=== PATIENT | male | born 1940 | race Caucasian/White ===

== ENCOUNTER 2021-04-27 08:39 | Inpatient (IN) | payer MEDICARE ==
[~2021-04-27] VITALS: Ht 172.7 cm; Wt 72.6 kg
[2021-04-27 09:30] LABS: Calcium, Ionized (POC) 1.14 mmol/L (1.10-1.46); Chloride (POC) 110 mmol/L (98-108); Creatinine (POC) 0.8 mg/dL (0.8-1.3); Glucose (ISTAT POC) 114 mg/dL (70-99); Hemoglobin (POC) 15.6 g/dL (13.5-17.5); Potassium (POC) 4.2 mmol/L (3.5-5.5); Sodium (POC) 142 mmol/L (135-148); Total CO2 (POC) 18 mmol/L (21-32)
[2021-04-27 09:31] LABS: BASOPHILS ABSOLUTE AUTO 0.05 K/mm3 (0.00-0.23); BASOPHILS PERCENT AUTO 1 % (0-2); EOSINOPHILS ABSOLUTE AUTO 0.13 K/mm3 (0.00-0.68); EOSINOPHILS PERCENT AUTO 2 % (0-6); Hematocrit 45.5 % (37.0-53.0); Hemoglobin 15.4 g/dL (13.5-17.5); IMMATURE GRAN ABSOLUTE AUTO 0.01 K/mm3 (0.00-0.10); IMMATURE GRAN PERCENT AUTO 0 % (0-1); LYMPHOCYTES ABSOLUTE AUTO 1.62 K/mm3 (0.84-5.20); LYMPHOCYTES PERCENT AUTO 25 % (21-46); MONOCYTES PERCENT AUTO 11 % (4-13); Mean Corpuscular HGB 31.9 pg (26.0-34.0); Mean Corpuscular HGB Conc 33.8 g/dL (31.5-36.5); Mean Corpuscular Volume 94 fL (80-100); Mean Platelet Volume 10.1 fL (9.1-12.4); NEUTROPHILS ABSOLUTE AUTO 3.98 K/mm3 (1.96-9.15); NEUTROPHILS PERCENT AUTO 61 % (41-73); Platelet Count 158 K/mm3 (150-400); RDW Standard Deviation 44.7 fL (35.1-46.3); Red Blood Cell Count 4.83 M/mm3 (4.30-5.90); White Blood Cell Count 6.49 K/mm3 (4.00-11.30)
[2021-04-27 10:13] LABS: Influenza A, PCR NEGATIVE (NEGATIVE); Influenza B, PCR NEGATIVE (NEGATIVE); Resp Syncytial Virus, PCR NEGATIVE (NEGATIVE); SARS-Cov-2 (COVID-19) PCR, MMC NEGATIVE (NEGATIVE)
[2021-04-27 10:22] LABS: Alanine Aminotransfer (ALT/SGP 65 U/L (12-78); Albumin, Blood 3.9 g/dL (3.4-5.0); Albumin/Globulin Ratio 1.2 (0.8-1.8); Alk Phos 61 U/L (50-136); Anion Gap 9 mmol/L (6-16); Aspartate Aminotrans (AST/SGOT 37 U/L (12-37); Bilirubin, Total 0.8 mg/dL (0.1-1.0); Blood Urea Nitrogen 12 mg/dL (8-24); Bun/Creatinine Ratio 13.5 (12.0-20.0); CO2, Blood 21 mmol/L (21-32); Calcium, Blood 9.5 mg/dL (8.5-10.1); Chloride, Blood 112 mmol/L (98-108); Creatinine, Blood 0.89 mg/dL (0.60-1.20); Globulin, Blood 3.2 g/dL (2.2-4.0); Glomerular Filtration Rate >60 (60-); Glucose, Blood 113 mg/dL (70-99); Potassium, Blood 4.3 mmol/L (3.5-5.5); Sodium, Blood 142 mmol/L (136-145); Total Protein, Blood 7.1 g/dL (6.4-8.2); Troponin I <0.015 ng/mL (0.000-0.040)
[2021-04-28 01:14] LABS: Hematocrit 42.1 % (37.0-53.0); Hemoglobin 14.1 g/dL (13.5-17.5); Mean Corpuscular HGB 31.8 pg (26.0-34.0); Mean Corpuscular HGB Conc 33.5 g/dL (31.5-36.5); Mean Corpuscular Volume 95 fL (80-100); Mean Platelet Volume 10.6 fL (9.1-12.4); Platelet Count 151 K/mm3 (150-400); RDW Coefficient Variation 12.9 % (11.7-14.2); RDW Standard Deviation 45.5 fL (35.1-46.3); Red Blood Cell Count 4.43 M/mm3 (4.30-5.90); White Blood Cell Count 6.87 K/mm3 (4.00-11.30)
[2021-04-28 01:45] LABS: Anion Gap 9 mmol/L (6-16); Blood Urea Nitrogen 14 mg/dL (8-24); Bun/Creatinine Ratio 15.8 (12.0-20.0); CO2, Blood 21 mmol/L (21-32); Calcium, Blood 8.4 mg/dL (8.5-10.1); Chloride, Blood 113 mmol/L (98-108); Creatinine, Blood 0.89 mg/dL (0.60-1.20); Glomerular Filtration Rate >60 (60-); Glucose, Blood 92 mg/dL (70-99); Potassium, Blood 4.1 mmol/L (3.5-5.5); Sodium, Blood 143 mmol/L (136-145); Troponin I 0.062 ng/mL (0.000-0.040)
--- NOTE | 2021-04-28 04:03 | NUR ---
INCREASED BP Increased BP since 0000. Covering doctor made aware. Orders for PRN hydralazine. Pt refusing at first states "my BP is always high!" Pt educated on the importance and agreed to a dose. Given to pt see GENE. NATHANTM
[2021-04-28] MEDS ORDERED: Acetaminophen650 M1 PO (11:11)
[2021-04-28] MEDS ORDERED: HYDR1TAB94 PO (11:11)
[2021-04-28] MEDS ORDERED: CARV3.125 PO (11:12)
[2021-04-28] MEDS ORDERED: Prinivil10 MG PO (11:25)
--- NOTE | 2021-04-28 11:25 | NUR ---
DISCHARGE NOTE PT ALERT AND ORIENTED, ABLE TO AMBULATE INDEPENDENTLY IN ROOM. L ARM SLING IN PLACE. DRESSING IN PLACE, CXR COMPLETED THIS MORNING. DEVICE INTERROGATION DONE AND DRESSING CHANGED PRIOR TO DISCHARGE BY CA RODRÍGUEZ. COREG GIVEN PER EMAR PRIOR TO DISCHARGE, DR. ZHANG AWARE OF HYPTERTENSION. PT PROVIDED WITH DISCHARGE INSTRUCTIONS REGARDING POST-PACER FOLLOW UP PLANS AND TO CALL [facility] ON FRIDAY FOR FOLLOW UP, WOUND CARE, AND POST-PACER ACTIVITY RESTRICTIONS. PT INSTRUCTED PER DR. ZHANG'S ORDERS TO CHECK BLOOD PRESSURE THIS EVENING AND TO TAKE X1 LISINOPRIL 10 MG IF SBP > 160. PT VERBALIZED UNDERSTANDING. PT ACCOMPANIED BY STAFF TO EXIT AND PRIVATE VEHICLE. PT ABLE TO AMBULATE INDEPENDENTLY.
[2021-04-28] MEDS ORDERED: KEPPRA250 M1 PO (11:39)
== END 2021-04-28 11:35 | disposition home or self-care (01) | DRG 244 ==
LOC: ER 08:39 → PCU 11:40 → SURS 15:05
PROVIDERS: Student in an Organized Health Care Education/Training Program; ADMIT Internal Medicine
PROC: 0JH606Z Insertion of Pacemaker, Dual Chamber into Chest Subcutaneous Tissue and Fascia, Open Approach (ICD-10-PCS; principal; 2021-04-27)
PROC: 02HK3JZ Insertion of Pacemaker Lead into Right Ventricle, Percutaneous Approach (ICD-10-PCS; 2021-04-27)
PROC: 02H63JZ Insertion of Pacemaker Lead into Right Atrium, Percutaneous Approach (ICD-10-PCS; 2021-04-27)
PROC: 5A1223Z Performance of Cardiac Pacing, Continuous (ICD-10-PCS; 2021-04-27)
DX: I44.2 Atrioventricular block, complete (principal); Z20.822 Contact with and (suspected) exposure to COVID-19; I10 Essential (primary) hypertension; Z66 Do not resuscitate; Z87.891 Personal history of nicotine dependence; Z91.14 Patient's other noncompliance with medication regimen
CPT/HCPCS: 0241U; 33208; 33210; 36415; 71045; 71046; 76937; 80047; 80048; 80053; 83735; 83880; 84443; 84484; 85014; 85025; 85027; 93005; 93010; 93306; 99152; 99153; 99284-25; A9270; C1785; C1894; C1898; J0360; J0690; J1644; J2250; J3010; J7030; J7040